=== PATIENT | female | born 1970 ===

== ENCOUNTER 2017-04-20 09:16 | Observation (INO) | payer SELFPAY ==
[2017-04-20 09:28] VITALS: TEMP 98.2; BMI 20.7
[2017-04-20] MEDS ORDERED: Sodium Chloride 0.9% 1,000 ML IV SCH (09:45)
--- NOTE | 2017-04-20 09:45 | ED PDOC ---
HPI:STROKE - Time Time: 09:41 - Historian Historian: Patient - Chief Complaint Chief Complaint: Numbness - Onset Date: 04/13/17 Time: 15:00 - Timing Timing: Persistent - TPA Positive for Contraindication: Yes Reason tPA is not being Administered: nih 0; out of window of tpa - Notes: Notes:: Pt. with chest pain left side for 1 week. Pt. with pain going down left arm. Numbness to left hand. No dyspnea, weakness, headache. Has dizziness like light-headed. No abd pain, nausea, vomit, diarrhea, leg pain. No long distance travel or hormone tx. NIHSS Stroke Scale - Date/Time Evaluation Performed Date Performed: 04/20/17 Time Performed: 09:45 When Was NIHSS Performed: Baseline - How Severe is the Stroke Level of Consciousness: 0=Alert LOC to Questions: 0=Both comments correct LOC to commands: 0=Obeys both correctly Best Gaze: 0=Normal Visual: 0=No visual loss Facial: 0=Normal Motor Arm - Left: 0=No drift Motor Arm - Right: 0=No drift Motor Leg - Left: 0=No drift Motor Leg - Right: 0=No drift Limb Ataxia: 0=Absent Sensory: 0=Normal Best Language: 0=No aphasia Dysarthia: 0=Normal articulation Extinction & Inattention (Neglect): 0=Normal, no object Score: 0 rTPA Inclusion/Exclusion - Refusal of Treatment Patient Refused Treatment: No - Inclusion Criteria for Altepase Patient is 18 years or Older: Yes The Clinical Diagnosis of Ischemic Stroke That is Causing a Potentially Disabling Neurological Deficit: No Time of Onset is Well Established to be Less Than 270 Minute Before Treatment Would Begin: No Risk/Benefit Discussed With Patient/Family Member Present: No Past Medical History Reviewed: Nursing Documentation, Vital Signs Vital Signs: Last Vital Signs Temp 98.2 F 04/20/17 09:27 Pulse 74 04/20/17 09:27 Resp 20 04/20/17 09:27 BP 125/88 04/20/17 09:27 Pulse Ox 98 04/20/17 09:32 - Medical History PMH: Diabetes (not on meds) - Surgical History Surgical History: No Surg Hx - Family History Family History: States: Unknown Family Hx - Social History Current smoker - smoking cessation education provided: No Alcohol: None Drugs: Denies - Home Medications Home Medications: Ambulatory Orders Medication Instructions Recorded No Known Home Med 04/20/17 - Allergies Allergies/Adverse Reactions: Allergies Allergy/AdvReac Type Severity Reaction Status Date / Time No Known Allergies Allergy Verified 04/20/17 09:35 Review of Systems ROS Statement: Except As Marked, All Systems Reviewed And Found Negative Cardiovascular: Positive for: Chest Pain Musculoskeletal: Positive for: Arm Pain Neurological: Positive for: Numbness Physical Exam - Reviewed Nursing Documentation Reviewed: Yes Vital Signs Reviewed: Yes - Physical Exam Appears: Positive for: Non-toxic, No Acute Distress Head Exam: Positive for: ATRAUMATIC, NORMAL INSPECTION, NORMOCEPHALIC Skin: Positive for: Normal Color, Warm, DRY Eye Exam: Positive for: EOMI, Normal appearance, PERRL ENT: Positive for: Normal ENT Inspection Neck: Positive for: Normal, Painless ROM Cardiovascular/Chest: Positive for: Regular Rate, Rhythm. Negative for: Edema Respiratory: Positive for: CNT, Normal Breath Sounds Gastrointestinal/Abdominal: Positive for: Normal Exam, Bowel Sounds, Soft. Negative for: Tenderness Back: Positive for: Normal Inspection. Negative for: L CVA Tenderness, R CVA Tenderness Extremity: Positive for: Normal ROM. 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 Negative for: Aphasia, Facial Droop - Laboratory Results Result Diagrams: 04/20/17 09:40 04/20/17 09:40 Interpretation Of Abn Labs: no acute - ECG ECG: Positive for: Interpreted By Me, Viewed By Me ECG Rhythm: Positive for: Normal QRS, Normal ST Segment, Sinus Rhythm O2 Sat by Pulse Oximetry: 98 - Radiology X-Ray: Read By Radiologist X-Ray Interpretation: No Acute Disease - CT Scan/US ct Other Rad Studies (CT/US): Read By Radiologist Other Rad Interpretation: no acute - Progress ED Course And Treament: Dr. Perez to admit. Stable. AAOx3. No chest pain at this time. Disposition - Clinical Impression Clinical Impression: Chest pain, Paresthesia - Patient ED Disposition Is Patient to be Admitted: Yes Counseled Patient/Family Regarding: Studies Performed, Diagnosis - Disposition Disposition Time: 15:06 Condition: FAIR - Pt Status Changed To: Hospital Disposition Of: Observation - POA Present On Arrival: Poor Glycemic Control
[2017-04-20 09:55] LABS: BASO # 0.1 K/uL (0.0-0.2); BASO % 0.9 % (0.0-2.0); EOS # 0.1 K/uL (0.0-0.7); EOS % 2.5 % (0.0-4.0); HEMATOCRIT 36.6 % (34.0-47.0); LYMPH # 2.8 K/uL (1.0-4.3); LYMPH % 46.9 % (20.0-40.0); MEAN CELL VOLUME 73.6 fl (81.0-99.0); MEAN CORPUSCULAR HEMOGLOBIN 24.5 pg (27.0-31.0); MEAN CORPUSCULAR HGB CONC 33.2 g/dL (33.0-37.0); MEAN PLATELET VOLUME 8.7 fl (7.2-11.7); MONO # 0.4 K/uL (0.0-0.8); NEUT # 2.6 K/uL (1.8-7.0); NEUT % 43.7 % (50.0-75.0); NRBC % 0.1 % (0.0-0.0); RED CELL DISTRIBUTION WIDTH 15.5 % (11.5-14.5); WHITE BLOOD COUNT 6.1 K/uL (4.8-10.8)
[2017-04-20 10:09] LABS: ALB/GLOB RATIO 1.3 (1.0-2.1); ALKALINE PHOSPHATASE 91 U/L (38-126); ALT/SGPT 26 U/L (9-52); AST/SGOT 17 U/L (14-36); BILIRUBIN,TOTAL 0.5 mg/dl (0.2-1.3); BLOOD UREA NITROGEN 12 mg/dl (7-17); CALCIUM 9.1 mg/dL (8.4-10.2); CARBON DIOXIDE 23 mmol/L (22-30); CHLORIDE 104 mmol/L (98-107); CHOLESTEROL 205 mg/dL (0-199); GFR AFRICAN-AMERICAN > 60; GLUCOSE,RANDOM 275 mg/dL (65-105); POTASSIUM 3.7 MMOL/L (3.6-5.0); SODIUM 138 mmol/l (132-148); TOTAL PROTEIN 7.4 G/DL (6.3-8.2)
[2017-04-20 10:18] LABS: PARTIAL THROMBOPLASTIN TIME 30.1 Seconds (25.6-37.1)
--- NOTE | 2017-04-20 10:25 | CT ---
PROCEDURE: CT HEAD WITHOUT CONTRAST. HISTORY: Arm weakness COMPARISON: None available. TECHNIQUE: Axial computed tomography images were obtained through the head/brain without intravenous contrast. Radiation dose: Total exam DLP = 759.78 mGy-cm. This CT exam was performed using one or more of the following dose reduction techniques: Automated exposure control, adjustment of the mA and/or kV according to patient size, and/or use of iterative reconstruction technique. FINDINGS: HEMORRHAGE: No intracranial hemorrhage. BRAIN: Lamar-white matter differentiation is preserved. There is no mass, mass effect or abnormal extra-axial fluid collection. . VENTRICLES: Ventricles are normal in size, shape and configuration. There is mild asymmetric prominence of the right temporal horn. CALVARIUM: The skull base and calvarium are normal. PARANASAL SINUSES: Predominantly clear. MASTOID AIR CELLS: Predominantly clear. OTHER FINDINGS: None. IMPRESSION: No acute intracranial abnormality. If there is a persistent focal neurologic deficit and an ongoing clinical concern for acute infarction, an MRI of the brain without intravenous contrast would be a more sensitive modality for evaluation of hyperacute/acute ischemic infarction.
--- NOTE | 2017-04-20 11:25 | RAD ---
HISTORY: Chest pain COMPARISON: No prior. FINDINGS: LUNGS: The lungs are well inflated and clear. PLEURA: No significant pleural effusion identified, no pneumothorax apparent. CARDIOVASCULAR: Normal. OSSEOUS STRUCTURES: No significant abnormalities. VISUALIZED UPPER ABDOMEN: Normal. OTHER FINDINGS: None. IMPRESSION: No active pulmonary disease.
[2017-04-20 11:50] VITALS: BP 115/75; PULSE 79; RESP 18
--- NOTE | 2017-04-20 12:55 | CP.PCM.HP ---
History of Present Illness - History of Present Illness History of Present Illness: Chief complaint: Shoulder pain History of present illness: 47-year-old female who denies any past medical history on no home medications presents to the emergency room today with a 10 day history of ongoing moderate shoulder pain upon movement with limited range of motion. Patient states that the shoulder pain radiates down her arm and to her superior and lateral L chest wall on movement, however has nothing at rest. Patient is tender over the pectoralis major, deltoid, trapezius as well as into her intraspinatus, and her biceps tendon. 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 She denies any, or fall. 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 Head CT negative. Strength deficit secondary to possible brachial plexus disorder or rotator cuff disorder. Shoulder XR report no fracture or dislocation. No OA. Hemodynamically stable. Review of systems per HPI all other systems reviewed and negative by me Past medical and surgical history denies, however was found to be hyperglycemic in the ER likely diabetes mellitus type 2 Family history denies Social history denies tobacco, alcohol, illicit drug use No home medications No known drug allergies Vitals reviewed Physical exam: Constitutional- cooperative, awake, alert. Head- NCAT, PERRL Eye- PERRL, normal accommodation ENT- normal exam, MMM. Neck- normal inspection, supple, no JVD Respiratory- CTAB, no wheezes rales rhonchi Cardiovascular- RRR, +S1, +S2 no MRG GI/Abdominal- normal bowel sounds, soft, no mass, no hsm Skin- warm, dry Extremities Exam- normal capillary refill, normal inspection limited range of motion left shoulder. Tenderness around all shoulder musculature. 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 REGULAR RATE. NO ACUTE SIGNS OF ISCHEMIA OR INFARCTION. Assessment and plan 47-year-old female who denies any past medical history on no home medications presents to the emergency room today with a 10 day history of ongoing moderate shoulder pain upon movement with limited range of motion. Patient states that the shoulder pain radiates down her arm and to her superior and lateral L chest wall on movement, however has nothing at rest. Patient is tender over the pectoralis major, deltoid, trapezius as well as into her intraspinatus, and her biceps tendon. 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 She denies any, or fall. 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 Shoulder XR report no fracture or dislocation. No OA. Shoulder pain poss 2/2 brachial plexus disorder or injury vs rotator cuff disorder Hyperglycemia Hyperlipidemia, Chol 205 LDL 144 Patient stable for discharge with follow-up at [facility] for hyperglycemia, hyperlipidemia, and for follow up for musculoskletal/shoulder plan. Present on Admission - Present on Admission Any Indicators Present on Admission: No Past Patient History - Past Social History Alcohol: None Drugs: Denies - ENDOCRINE/METABOLIC Hx Diabetes Mellitus Type 2: Yes - PSYCHIATRIC Hx Substance Use: No - SURGICAL HISTORY Hx Section: Yes (x1) Meds Allergies/Adverse Reactions: Allergies Allergy/AdvReac Type Severity Reaction Status Date / Time No Known Allergies Allergy Verified 04/20/17 09:35 Results - Vital Signs Recent Vital Signs: Last Vital Signs Temp 98.2 F 04/20/17 11:48 Pulse 79 04/20/17 11:48 Resp 18 04/20/17 11:48 BP 115/75 04/20/17 11:48 Pulse Ox 100 04/20/17 11:48 - Labs Result Diagrams: 04/20/17 09:40 04/20/17 09:40 Labs: Laboratory Results - last 24 hr 04/20/17 04/20/17 04/20/17 09:40 09:40 09:40 WBC 6.1 RBC 4.97 Hgb 12.2 Hct 36.6 MCV 73.6 L MCH 24.5 L MCHC 33.2 RDW 15.5 H Plt Count 299 MPV 8.7 Neut % (Auto) 43.7 L Lymph % (Auto) 46.9 H [place] % (Auto) 6.0 Eos % (Auto) 2.5 Baso % (Auto) 0.9 Neut # 2.6 Lymph # 2.8 [place] # 0.4 Eos # 0.1 Baso # 0.1 PT 11.0 INR 1.0 APTT 30.1 Sodium 138 Potassium 3.7 Chloride 104 Carbon Dioxide 23 Anion Gap 15 BUN 12 Creatinine 0.4 L Est GFR ( Amer) > 60 Est GFR (Non-Af Amer) > 60 Random Glucose 275 H Calcium 9.1 Total Bilirubin 0.5 AST 17 ALT 26 Alkaline Phosphatase 91 Troponin I < 0.0120 Total Protein 7.4 Albumin 4.2 Globulin 3.2 Albumin/Globulin Ratio 1.3 Triglycerides 100 Cholesterol 205 H LDL Cholesterol Direct 144 H HDL Cholesterol 50 Blood Type Antibody Screen BBK History Checked 04/20/17 09:40 WBC RBC Hgb Hct MCV MCH MCHC RDW Plt Count MPV Neut % (Auto) Lymph % (Auto) [place] % (Auto) Eos % (Auto) Baso % (Auto) Neut # Lymph # [place] # Eos # Baso # PT INR APTT Sodium Potassium Chloride Carbon Dioxide Anion Gap BUN Creatinine Est GFR ( Amer) Est GFR (Non-Af Amer) Random Glucose Calcium Total Bilirubin AST ALT Alkaline Phosphatase Troponin I Total Protein Albumin Globulin Albumin/Globulin Ratio Triglycerides Cholesterol LDL Cholesterol Direct HDL Cholesterol Blood Type O POSITIVE Antibody Screen Negative BBK History Checked No verified bt
--- NOTE | 2017-04-20 13:36 | RAD ---
PROCEDURE: Radiographs of the Left Shoulder HISTORY: shoulder pain COMPARISON: No prior. FINDINGS: BONES: Bone alignment and mineralization are normal. There is no acute displaced fracture or bone destruction JOINTS: Normal. Glenohumeral and acromioclavicular joints preserved. No osteoarthritis. SOFT TISSUES: Normal. OTHER FINDINGS: None. IMPRESSION: No acute fracture or dislocation.
--- NOTE | 2017-04-20 13:44 | CP.PCM.DIS ---
Provider - Provider Date of Admission: 04/20/17 11:54 Attending physician: Anamika Perez DO Time Spent in preparation of Discharge (in minutes): 30 Diagnosis - Discharge Diagnosis (1) Shoulder pain, left Status: Acute (2) Hyperglycemia Status: Acute (3) Hyperlipidemia Status: Acute Hospital Course - Lab Results Lab Results: Most Recent Lab Values WBC 6.1 K/uL (4.8-10.8) 04/20/17 09:40 RBC 4.97 Mil/uL (3.80-5.20) 04/20/17 09:40 Hgb 12.2 g/dL (12.0-16.0) 04/20/17 09:40 Hct 36.6 % (34.0-47.0) 04/20/17 09:40 MCV 73.6 fl (81.0-99.0) L 04/20/17 09:40 MCH 24.5 pg (27.0-31.0) L 04/20/17 09:40 MCHC 33.2 g/dL (33.0-37.0) 04/20/17 09:40 RDW 15.5 % (11.5-14.5) H 04/20/17 09:40 Plt Count 299 K/uL (130-400) 04/20/17 09:40 MPV 8.7 fl (7.2-11.7) 04/20/17 09:40 Neut % (Auto) 43.7 % (50.0-75.0) L 04/20/17 09:40 Lymph % (Auto) 46.9 % (20.0-40.0) H 04/20/17 09:40 [place] % (Auto) 6.0 % (0.0-10.0) 04/20/17 09:40 Eos % (Auto) 2.5 % (0.0-4.0) 04/20/17 09:40 Baso % (Auto) 0.9 % (0.0-2.0) 04/20/17 09:40 Neut # 2.6 K/uL (1.8-7.0) 04/20/17 09:40 Lymph # 2.8 K/uL (1.0-4.3) 04/20/17 09:40 [place] # 0.4 K/uL (0.0-0.8) 04/20/17 09:40 Eos # 0.1 K/uL (0.0-0.7) 04/20/17 09:40 Baso # 0.1 K/uL (0.0-0.2) 04/20/17 09:40 PT 11.0 Seconds (9.8-13.1) 04/20/17 09:40 INR 1.0 (0.9-1.2) 04/20/17 09:40 APTT 30.1 Seconds (25.6-37.1) 04/20/17 09:40 Sodium 138 mmol/l (132-148) 04/20/17 09:40 Potassium 3.7 MMOL/L (3.6-5.0) 04/20/17 09:40 Chloride 104 mmol/L (98-107) 04/20/17 09:40 Carbon Dioxide 23 mmol/L (22-30) 04/20/17 09:40 Anion Gap 15 (10-20) 04/20/17 09:40 BUN 12 mg/dl (7-17) 04/20/17 09:40 Creatinine 0.4 mg/dL (0.7-1.2) L 04/20/17 09:40 Est GFR ( Amer) > 60 04/20/17 09:40 Est GFR (Non-Af Amer) > 60 04/20/17 09:40 Random Glucose 275 mg/dL (65-105) H 04/20/17 09:40 Calcium 9.1 mg/dL (8.4-10.2) 04/20/17 09:40 Total Bilirubin 0.5 mg/dl (0.2-1.3) 04/20/17 09:40 AST 17 U/L (14-36) 04/20/17 09:40 ALT 26 U/L (9-52) 04/20/17 09:40 Alkaline Phosphatase 91 U/L (38-126) 04/20/17 09:40 Troponin I < 0.0120 ng/mL (0.00-0.120) 04/20/17 09:40 Total Protein 7.4 G/DL (6.3-8.2) 04/20/17 09:40 Albumin 4.2 g/dL (3.5-5.0) 04/20/17 09:40 Globulin 3.2 gm/dL (2.2-3.9) 04/20/17 09:40 Albumin/Globulin Ratio 1.3 (1.0-2.1) 04/20/17 09:40 Triglycerides 100 mg/DL (0-149) 04/20/17 09:40 Cholesterol 205 mg/dL (0-199) H 04/20/17 09:40 LDL Cholesterol Direct 144 mg/dL (0-129) H 04/20/17 09:40 HDL Cholesterol 50 MG/DL (30-70) 04/20/17 09:40 Blood Type O POSITIVE 04/20/17 09:40 Antibody Screen Negative 04/20/17 09:40 BBK History Checked No verified bt 04/20/17 09:40 - Hospital Course Hospital Course: 47-year-old female who denies any past medical history on no home medications presents to the emergency room today with a 10 day history of ongoing moderate shoulder pain upon movement with limited range of motion. Patient states that the shoulder pain radiates down her arm and to her superior and lateral L chest wall on movement, however has nothing at rest. Patient is tender over the pectoralis major, deltoid, trapezius as well as into her intraspinatus, and her biceps tendon. 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 She denies any, or fall. 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 Head CT negative. 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 Shoulder XR report no fracture or dislocation. No OA. Shoulder pain poss 2/2 brachial plexus disorder or injury vs rotator cuff disorder Hyperglycemia Hyperlipidemia, Chol 205 LDL 144 Patient stable for discharge with follow-up at [facility] for hyperglycemia, hyperlipidemia, and for follow up for musculoskletal/shoulder plan. Discharge Exam - Head Exam Additional comments: Constitutional- cooperative, awake, alert. Head- NCAT, PERRL Eye- PERRL, normal accommodation ENT- normal exam, MMM. Neck- normal inspection, supple, no JVD Respiratory- CTAB, no wheezes rales rhonchi Cardiovascular- RRR, +S1, +S2 no MRG GI/Abdominal- normal bowel sounds, soft, no mass, no hsm Skin- warm, dry Extremities Exam- normal capillary refill, normal inspection limited range of motion left shoulder. Tenderness around all shoulder musculature. 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 Patient also follow-up for possible brachial plexus injury/disorder. Referrals: [facility] [Provider Group]
[2017-04-20 15:06] VITALS: O2SAT 98
--- NOTE | 2017-04-21 10:45 | CARD ---
APPROVED REPORT EKG Measurement Heart [id number] [id number] <Conclusion> Normal sinus rhythm Left axis deviation Abnormal ECG
== END 2017-04-20 14:31 | disposition home or self-care (01) ==
LOC: H.ER 09:16 → H.ERHOLD 11:54
PROVIDERS: ADMIT Student in an Organized Health Care Education/Training Program; ATTEND Student in an Organized Health Care Education/Training Program
DX: M25.512 Pain in left shoulder (principal); E11.65 Type 2 diabetes mellitus with hyperglycemia; E78.5 Hyperlipidemia, unspecified; R20.0 Anesthesia of skin
CPT/HCPCS: 70450; 71010; 73030; 80053; 80061; 81025; 82948; 83036; 84484; 85025; 85610; 85730; 86850; 86900; 93005; 99285; G0378; J7040

== ENCOUNTER 2017-11-07 11:18 | Emergency (ER) | payer SELFPAY ==
[2017-11-07 11:18] VITALS: BMI 20.7
--- NOTE | 2017-11-07 12:33 | ED PDOC ---
HPI: Headache Time Seen by Provider: 11/07/17 11:54 Chief Complaint (Nursing): Headache Chief Complaint (Provider): headache, L arm pain History Per: Patient, Manager Hardware (Jenniffer Mojica) History/Exam Limitations: no limitations Onset/Duration Of Symptoms: Days (7 days), Gradual Quality: Sharp Preceeding Symptoms: None Associated Symptoms: Extremity Weakness. denies: Photophobia, Blurred Vision Additional Complaint(s): 47yo female hx DM presents c/o left arm / shoulder pain extending to neck and occipital head x1 week, sharp associated with subjective paresthesias and weakness/ limited ROM by pain. Denies change vision, dizziness, facial weakness or droop, change speech or vision, or lower extremity symptoms. Went to [facility] clinic tuesday for symptoms told to come to ER for CT if symptoms persist. Past Medical History Reviewed: Historical Data, Nursing Documentation, Vital Signs Vital Signs: Last Vital Signs Temp 98.2 F 11/07/17 11:41 Pulse 97 H 11/07/17 11:41 Resp 17 11/07/17 11:41 BP 101/68 11/07/17 11:41 Pulse Ox 98 11/07/17 11:55 - Medical History PMH: Diabetes (not on meds) - Family History Family History: States: Unknown Family Hx - Living Arrangements Living Arrangements: With Family - Social History Current smoker - smoking cessation education provided: No - Home Medications Home Medications: Ambulatory Orders Medication Instructions Recorded Cyclobenzaprine [Cyclobenzaprine 10 mg PO Q8 PRN #9 tab 11/07/17 HCl] Naproxen [Naprosyn] 500 mg PO BID PRN #14 tablet 11/07/17 - Allergies Allergies/Adverse Reactions: Allergies Allergy/AdvReac Type Severity Reaction Status Date / Time No Known Allergies Allergy Verified 11/07/17 11:55 Review of Systems Constitutional: Negative for: Fever Cardiovascular: Negative for: Chest Pain Respiratory: Negative for: Cough Gastrointestinal: Negative for: Abdominal Pain Genitourinary Female: Negative for: Dysuria Musculoskeletal: Positive for: Neck Pain, Shoulder Pain, Arm Pain. Negative for : Back Pain Neurological: Positive for: Weakness, Numbness, Headache. Negative for: Incoordination, Change in Speech, Dizziness Psych: Negative for: Depression Physical Exam - Reviewed Nursing Documentation Reviewed: Yes Vital Signs Reviewed: Yes - Physical Exam Appears: Positive for: Well, Non-toxic, No Acute Distress Head Exam: Positive for: ATRAUMATIC, NORMAL INSPECTION, NORMOCEPHALIC Skin: Positive for: Normal Color, Warm, DRY Eye Exam: Positive for: EOMI, Normal appearance, PERRL ENT: Positive for: Normal ENT Inspection Neck: Positive for: Normal, Painless ROM Cardiovascular/Chest: Positive for: Regular Rate, Rhythm Respiratory: Positive for: CNT, Normal Breath Sounds Gastrointestinal/Abdominal: Positive for: Normal Exam, Soft Back: Positive for: Normal Inspection Extremity: Positive for: Normal ROM Neurologic/Psych: Positive for: Alert, Oriented, Motor/Sensory Deficits (?decr sensation L arm), Gait (normal). Negative for: Mood/Affect, Facial Droop - Laboratory Results Result Diagrams: 11/07/17 13:00 11/07/17 13:00 - ECG O2 Sat by Pulse Oximetry: 98 Medical Decision Making Medical Decision Making: to check ekg, CT brain/ CSpine, initiate pain medicine labs reviewed and clinically unremarkable CT brain and CSpine reports reviewed 4pm, given tylenol and tolerated PO without difficulty. 450p improved, states pain better, some mild tenderness to trapezius but overall normal ROM, strength and unlikely to be acute cerebral ischemia as ongoing 1 week, improved w tylenol and no other neuro symptoms, CT brain neg Rx flexeril and naprosyn, followup clinic/ PMD and indications for return to ER discussed at length Explained in pashto via Zoraida ARIZA pashto fluent halftone operator Disposition - Clinical Impression Clinical Impression: Headache, Radicular pain, Trapezius strain Counseled Patient/Family Regarding: Studies Performed, Diagnosis, Need For Followup, Rx Given - Disposition Referrals: [facility] [Outside] Disposition: Routine/Home Disposition Time: 16:58 Condition: STABLE Prescriptions: Cyclobenzaprine [Cyclobenzaprine HCl] 10 mg PO Q8 PRN #9 tab PRN Reason: Muscle Spasm Naproxen [Naprosyn] 500 mg PO BID PRN #14 tablet PRN Reason: Pain, Moderate (4-7) Instructions: Radiculopathy, Muscle Strain, Headache, Adult Forms: [employer] (Bangladeshi) Print Language: YI
[2017-11-07 13:18] LABS: BASO % 0.5 % (0.0-2.0); EOS # 0.1 K/uL (0.0-0.7); EOS % 1.1 % (0.0-4.0); HEMOGLOBIN 10.7 g/dL (12.0-16.0); LYMPH # 2.4 K/uL (1.0-4.3); LYMPH % 31.9 % (20.0-40.0); MEAN CELL VOLUME 72.9 fl (81.0-99.0); MEAN CORPUSCULAR HEMOGLOBIN 24.3 pg (27.0-31.0); MEAN CORPUSCULAR HGB CONC 33.4 g/dL (33.0-37.0); MEAN PLATELET VOLUME 9.1 fl (7.2-11.7); MONO # 0.6 K/uL (0.0-0.8); MONO % 7.7 % (0.0-10.0); NEUT # 4.3 K/uL (1.8-7.0); NEUT % 58.8 % (50.0-75.0); NRBC % 0.3 % (0.0-0.0); RBC 4.4 Mil/uL (3.80-5.20); RED CELL DISTRIBUTION WIDTH 14.5 % (11.5-14.5); WHITE BLOOD COUNT 7.4 K/uL (4.8-10.8)
[2017-11-07 13:23] LABS: PARTIAL THROMBOPLASTIN TIME 29.2 Seconds (25.6-37.1); PROTHROMBIN TIME 11.1 Seconds (9.8-13.1)
[2017-11-07 14:05] LABS: BLOOD UREA NITROGEN 11 mg/dl (7-17)
[2017-11-07 14:06] LABS: GFR AFRICAN-AMERICAN > 60; GFR NON-AFRICAN AMERICAN > 60
[2017-11-07 14:08] LABS: ALB/GLOB RATIO 1.1 (1.0-2.1); ALBUMIN 3.4 g/dL (3.5-5.0); ALT/SGPT 38 U/L (9-52); AST/SGOT 26 U/L (14-36); CALCIUM 9.2 mg/dL (8.4-10.2)
--- NOTE | 2017-11-07 14:26 | CT ---
PROCEDURE: CT HEAD WITHOUT CONTRAST. HISTORY: L arm pain/numbness COMPARISON: None available. TECHNIQUE: Axial computed tomography images were obtained through the head/brain without intravenous contrast. Radiation dose: Total exam DLP = 651.03 mGy-cm. This CT exam was performed using one or more of the following dose reduction techniques: Automated exposure control, adjustment of the mA and/or kV according to patient size, and/or use of iterative reconstruction technique. FINDINGS: HEMORRHAGE: No intracranial hemorrhage. BRAIN: No mass effect or edema. No atrophy or chronic microvascular ischemic changes. VENTRICLES: Unremarkable. No hydrocephalus. CALVARIUM: Unremarkable. PARANASAL SINUSES: Unremarkable as visualized. No significant inflammatory changes. MASTOID AIR CELLS: Unremarkable as visualized. No inflammatory changes. OTHER FINDINGS: None. IMPRESSION: No acute intracranial abnormalities. No significant findings to account for the clinical presentation.
--- NOTE | 2017-11-07 14:29 | CT ---
PROCEDURE: CT Cervical Spine without contrast HISTORY: L arm pain, numbness COMPARISON: None available. TECHNIQUE: Axial computed tomography images were obtained of the cervical spine without the use of intravenous contrast. Coronal and sagittal reformatted images were created and reviewed. Radiation dose: Total exam DLP = 359.47 mGy-cm. This CT exam was performed using one or more of the following dose reduction techniques: Automated exposure control, adjustment of the mA and/or kV according to patient size, and/or use of iterative reconstruction technique. FINDINGS: VERTEBRAE: No fracture. Reversal of the anatomic lordosis with kyphosis. Degree: Mild. No destructive bony lesion. DISCS/SPINAL CANAL/NEURAL FORAMINA: No significant central canal or neural foraminal stenosis. Discs heights are grossly preserved. PARASPINAL SOFT TISSUES: Unremarkable. OTHER FINDINGS: None. IMPRESSION: Mild kyphosis. Otherwise unremarkable study.
[2017-11-07 17:38] VITALS: BP 126/70; PULSE 71; RESP 18; TEMP 97.8
[2017-11-07 17:39] VITALS: O2SAT 98
--- NOTE | 2017-11-08 09:02 | CARD ---
APPROVED REPORT EKG Measurement Heart [id number] [place] 158P42 [id number] <Conclusion> Normal sinus rhythm Left axis deviation Prolonged QT Abnormal ECG
== END 2017-11-07 17:15 | disposition home or self-care (01) ==
LOC: H.ER 11:18
DX: R51 Headache (principal); M54.10 Radiculopathy, site unspecified; S46.812A Strain of other muscles, fascia and tendons at shoulder and upper arm level, left arm, initial encounter; Y92.89 Other specified places as the place of occurrence of the external cause; E11.9 Type 2 diabetes mellitus without complications
CPT/HCPCS: 70450; 72125; 80053; 85025; 85610; 85730; 93005; 96374; 99284; J1885

== ENCOUNTER 2017-12-26 09:11 | Emergency (ER) | payer SELFPAY ==
[2017-12-26 09:12] VITALS: BMI 20.7
[2017-12-26 09:21] VITALS: TEMP 98.1; O2SAT 98
--- NOTE | 2017-12-26 10:11 | ED PDOC ---
HPI: General Adult Time Seen by Provider: 12/26/17 09:24 Chief Complaint (Nursing): Abnormal Labs Chief Complaint (Provider): Abnormal lab History Per: Patient History/Exam Limitations: no limitations Additional Complaint(s): Pt sent from [facility] for hypokalemia (3.2) found of blood work done on 12/23/17, advised to come at that time but comes today. Pt c/o generalized REA X 3 weeks, constant, relieved with Tylenol. Also c/o lower abdominal pain X 2 weeks, nausea and vomiting. Denies fever, CP, SOB, constipation, diarrhea, symptoms. Past Medical History Reviewed: Nursing Documentation, Vital Signs Vital Signs: Last Vital Signs Temp 98.1 F 12/26/17 09:20 Pulse 98 H 12/26/17 09:20 Resp 19 12/26/17 09:20 BP 103/68 12/26/17 09:20 Pulse Ox 98 12/26/17 10:13 - Medical History PMH: Diabetes (not on meds) - Family History Family History: States: Unknown Family Hx - Social History Current smoker - smoking cessation education provided: No Alcohol: None - Home Medications Home Medications: Ambulatory Orders Medication Instructions Recorded Cyclobenzaprine [Cyclobenzaprine 10 mg PO Q8 PRN #9 tab 11/07/17 HCl] Naproxen [Naprosyn] 500 mg PO BID PRN #14 tablet 11/07/17 Famotidine [Pepcid] 20 mg PO BID #20 tab 12/26/17 Ondansetron [Zofran Odt] 4 mg PO Q8H PRN #15 odt 12/26/17 - Allergies Allergies/Adverse Reactions: Allergies Allergy/AdvReac Type Severity Reaction Status Date / Time No Known Allergies Allergy Verified 11/07/17 11:55 Review of Systems Constitutional: Negative for: Fever, Chills Eyes: Negative for: Vision Change Cardiovascular: Negative for: Chest Pain, Palpitations Respiratory: Negative for: Cough, Shortness of Breath Gastrointestinal: Positive for: Nausea, Vomiting, Abdominal Pain. Negative for : Diarrhea, Hematemesis Genitourinary Female: Negative for: Dysuria, Hematuria, Vaginal Discharge, Vaginal Bleeding Musculoskeletal: Negative for: Back Pain Skin: Negative for: Rash, Lesions Neurological: Positive for: Headache. Negative for: Weakness, Numbness, Incoordination, Change in Speech, Confusion, Seizures, Altered Mental Status, Dizziness Physical Exam - Reviewed Nursing Documentation Reviewed: Yes Vital Signs Reviewed: Yes - Physical Exam Appears: Positive for: Well, No Acute Distress Head Exam: Positive for: ATRAUMATIC, NORMAL INSPECTION Skin: Positive for: Normal Color, Warm, Dry Eye Exam: Positive for: Normal appearance, EOMI, PERRL Neck: Positive for: Normal, Painless ROM, Supple Cardiovascular/Chest: Positive for: Regular Rate, Rhythm Respiratory: Positive for: Normal Breath Sounds Gastrointestinal/Abdominal: Positive for: Bowel Sounds, Soft, Tenderness (BLQ) Back: Positive for: Normal Inspection. Negative for: L CVA Tenderness, R CVA Tenderness Extremity: Positive for: Normal ROM Neurologic/Psych: Positive for: Alert, member of technical staff II-XII, Oriented. Negative for: Motor/Sensory Deficits, Aphasia, Facial Droop - Laboratory Results Result Diagrams: 12/26/17 10:40 12/26/17 10:40 - ECG O2 Sat by Pulse Oximetry: 98 Medical Decision Making Medical Decision Makin yo female with hypokalema, REA and lower abdominal pain. - labs - EKG - pelvic ultrasound - CT abd/pelvis - IVF - Zofran Upon review of old records, patient has had negative CT head on 04/20/17 and 11/07. Accession No. : [id number] Patient Name / ID : AMAIRANI HYLTON / [id number] Exam Date : 12/26/2017 12:35:27 ( Approved ) Study Comment : Sex / Age : F / 47Y Creator : Ishaan Paz MD Dictator : Ishaan Paz MD Orthotic And Prosthetic Technician : Turret Punch Operator : Ishaan Paz MD Approver2 : Report Date : 12/26/2017 14:05:45 My Comment : Pelvic ultrasound History: Pain for 3 weeks. Comparison: None. Technique: Transabdominal and transvaginal ultrasonography obtained including color Doppler images of the ovaries. Findings: The uterus is anteverted and measures approximately 8.2 x 2.7 x 3.9 centimeters. The endometrium measures approximately 0.6 centimeters. No intrauterine gestational sac identified. Mild heterogeneity of the myometrium noted. Possible nabothian cyst in the cervix. Right ovary was identified in the transabdominal imaging and measures 1.9 by 1.5 x 2.2 centimeters. Doppler flow was established within the right ovary. Left ovary was identified in transvaginal imaging and measures 3 x 1.6 x 2 centimeters. A complex cystic structure measuring 2 x 1 x 1.7 centimeters the seen. Color Doppler seen within the left ovary. No significant free fluid in the cul-de-sac. Please note that this evaluation is predicated on the non status. Impression: No definite evidence of ovarian torsion at the time of evaluation. Complex cystic structure in the left ovary. Follow-up should be obtained in 1 menstrual cycle. 14:00 Pt evaluated in ED by Dr. Olivas, agrees with discharge home, has appt for [facility] on 12/30/17 Disposition - Clinical Impression Clinical Impression: Headache, Abdominal pain - Disposition Referrals: [facility] [Outside] Disposition: Routine/Home Disposition Time: 14:30 Condition: STABLE Prescriptions: Famotidine [Pepcid] 20 mg PO BID #20 tab Ondansetron [Zofran Odt] 4 mg PO Q8H PRN #15 odt PRN Reason: Nausea/Vomiting Instructions: Headache, Adult, Nausea and Vomiting, Adult (DC) Forms: [employer] (Macedonian) Print Language: INDONESIAN
[2017-12-26] MEDS ORDERED: Sodium Chloride 0.9% 1,000 ML IV STA (10:13)
[2017-12-26 10:53] LABS: BASO % 0.7 % (0.0-2.0); EOS % 0.8 % (0.0-4.0); HEMOGLOBIN 11.1 g/dL (12.0-16.0); LYMPH # 2.1 K/uL (1.0-4.3); LYMPH % 35.2 % (20.0-40.0); MEAN CELL VOLUME 73.5 fl (81.0-99.0); MEAN CORPUSCULAR HGB CONC 32.7 g/dL (33.0-37.0); MONO # 0.5 K/uL (0.0-0.8); MONO % 8.4 % (0.0-10.0); NEUT # 3.2 K/uL (1.8-7.0); NEUT % 54.9 % (50.0-75.0); RBC 4.64 Mil/uL (3.80-5.20); RED CELL DISTRIBUTION WIDTH 15.2 % (11.5-14.5); WHITE BLOOD COUNT 5.9 K/uL (4.8-10.8)
[2017-12-26 11:12] LABS: ALB/GLOB RATIO 1.2 (1.0-2.1); ALBUMIN 3.6 g/dL (3.5-5.0); ALT/SGPT 39 U/L (9-52); AST/SGOT 40 U/L (14-36); BLOOD UREA NITROGEN 9 mg/dl (7-17); CALCIUM 9.9 mg/dL (8.4-10.2); GFR AFRICAN-AMERICAN > 60; GFR NON-AFRICAN AMERICAN > 60
--- NOTE | 2017-12-26 11:54 | CARD ---
APPROVED REPORT EKG Measurement Heart [id number] <Conclusion> Normal sinus rhythm Possible Left atrial enlargement Left anterior fascicular block Prolonged QT Abnormal ECG
[2017-12-26 12:21] LABS: PARTIAL THROMBOPLASTIN TIME 30.2 Seconds (25.6-37.1); PROTHROMBIN TIME 11.4 Seconds (9.8-13.1)
--- NOTE | 2017-12-26 14:07 | US ---
Pelvic ultrasound History: Pain for 3 weeks. Comparison: None. Technique: Transabdominal and transvaginal ultrasonography obtained including color Doppler images of the ovaries. Findings: The uterus is anteverted and measures approximately 8.2 x 2.7 x 3.9 centimeters. The endometrium measures approximately 0.6 centimeters. No intrauterine gestational sac identified. Mild heterogeneity of the myometrium noted. Possible nabothian cyst in the cervix. Right ovary was identified in the transabdominal imaging and measures 1.9 by 1.5 x 2.2 centimeters. Doppler flow was established within the right ovary. Left ovary was identified in transvaginal imaging and measures 3 x 1.6 x 2 centimeters. A complex cystic structure measuring 2 x 1 x 1.7 centimeters the seen. Color Doppler seen within the left ovary. No significant free fluid in the cul-de-sac. Please note that this evaluation is predicated on the non status. Impression: No definite evidence of ovarian torsion at the time of evaluation. Complex cystic structure in the left ovary. Follow-up should be obtained in 1 menstrual cycle.
[2017-12-26 15:41] VITALS: BP 110/70; PULSE 90; RESP 16
== END 2017-12-26 16:38 | disposition home or self-care (01) ==
LOC: H.ER 09:11
DX: R51 Headache (principal); R10.9 Unspecified abdominal pain; E11.9 Type 2 diabetes mellitus without complications
CPT/HCPCS: 76830; 76856; 80053; 81025; 82948; 83735; 84100; 84443; 85025; 85610; 85730; 93005; 99282; J7030